=== PATIENT | male | born 1980 ===

== ENCOUNTER 2017-12-11 19:47 | Emergency (ER) | payer SELFPAY ==
[2017-12-11] MEDS ORDERED: NORCO 325 MG-51 TA1 PO (20:40)
[2017-12-11] MEDS ORDERED: AMOXIL500 M1 PO (20:40)
[2017-12-11 20:46] VITALS: BP 125/99
== END 2017-12-11 20:46 | disposition home or self-care (01) ==
LOC: ED 19:47
DX: K03.81 Cracked tooth (principal); H92.02 Otalgia, left ear; R51 Headache; R68.84 Jaw pain

== ENCOUNTER 2018-04-14 17:03 | Emergency (ER) | payer SELFPAY ==
[~2018-04-14] VITALS: Ht 167.6 cm; Wt 81.8 kg
[~2018-04-14 17:03] MED LIST: AMOXIL500 M1 PO; NORCO 325 MG-51 TA1 PO
[2018-04-14] MEDS ORDERED: CYCLOBENZAPRINE10 M1 PO (17:23)
[2018-04-14] MEDS ORDERED: IBU800 M1 PO (17:23)
[2018-04-14] MEDS ORDERED: NORCO 325 MG-51 TA1 PO (17:23)
[2018-04-14 17:40] VITALS: BP 126/90
== END 2018-04-14 17:39 | disposition home or self-care (01) ==
LOC: ED 17:03
DX: S39.012A Strain of muscle, fascia and tendon of lower back, initial encounter (principal); X50.1XXA Overexertion from prolonged static or awkward postures, initial encounter; M41.9 Scoliosis, unspecified
CPT/HCPCS: J1885; J2360